=== PATIENT | female | born 1965 ===

== ENCOUNTER 2020-08-28 07:11 | Inpatient (IN) | payer OTHER ==
[~2020-08-28] VITALS: Ht 167.6 cm; Wt 69.4 kg
[~2020-08-28 07:11] MED LIST: LEVOTHYROXINE25 MCG PO
[2020-08-28] MEDS ORDERED: CLONAZEPAM0.5 MG (13:08)
[2020-08-28] MEDS ORDERED: DICLOFENAC POTA50 MG (13:08)
== END 2020-08-30 19:26 | DRG 470 ==
LOC: CIR.AMB 07:11 → O/R 12:56 → SURH 12:56
PROVIDERS: ADMIT Orthopaedic Surgery; ATTEND Orthopaedic Surgery
PROC: 0SRC0J9 Replacement of Right Knee Joint with Synthetic Substitute, Cemented, Open Approach (ICD-10-PCS; principal; 2020-08-28 07:00)
DX: M17.11 Unilateral primary osteoarthritis, right knee (principal); D62 Acute posthemorrhagic anemia; Z20.822 Contact with and (suspected) exposure to COVID-19; E03.9 Hypothyroidism, unspecified